=== PATIENT | female | born 1945 | race African-American/Black ===

== ENCOUNTER 2019-09-28 17:36 | Emergency (ER) | payer OTHER ==
[~2019-09-28] VITALS: Ht 167.6 cm; Wt 56.0 kg
[2019-09-28] MEDS ORDERED: SODIUM CHLORIDE 0.9% 1000ML BAG (SEPSIS BOLUS) IV ONE (19:00)
[2019-09-28] MEDS ORDERED: VANCOMYCIN 1 G PREMIX 200 ML IV ONE (19:00)
[2019-09-28 22:31] LABS: HEMATOCRIT. 43.1 % (36.0-48.0); HEMOGLOBIN. 13.8 g/dL (12.0-16.0); MEAN CORPUSCULAR HEMOGLOBIN 27.5 pg (28.0-32.0); MEAN CORPUSCULAR VOLUME 85.9 fL (81.0-99.0); MEAN PLATELET VOLUME 8.2 fl (7.4-10.4); PLATELET 390 x1000/uL (130-400); RED BLOOD CELL COUNT 5.01 mill/uL (4.2-5.4); RED CELL DISTRIBUTION WIDTH 16.7 % (11.6-14.6)
[2019-09-28 22:38] LABS: CHLORIDE 110 mEq/L (98-107)
[2019-09-28 22:58] LABS: PLATELET ESTIMATE NORMAL
[2019-09-29 00:54] LABS: PROTHROMBIN TIME 10.4 sec (9.6-11.0)
[2019-09-29 03:54] VITALS: BP 93/51
== END 2019-09-29 03:56 | disposition home or self-care (01) ==
LOC: ER 17:36 → CANRESERV 09-29 01:01 → ENRESERV 09-29 01:01 → ER 09-29 03:56 → CANBEDREQ 09-29 05:35
DX: I95.9 Hypotension, unspecified (principal); Z85.3 Personal history of malignant neoplasm of breast; R53.1 Weakness; R42 Dizziness and giddiness; F03.90 Unspecified dementia, unspecified severity, without behavioral disturbance, psychotic disturbance, mood disturbance, and anxiety; Z88.0 Allergy status to penicillin; Z88.5 Allergy status to narcotic agent
CPT/HCPCS: 36415; 71045; 80053; 83605; 84145; 84484; 85025; 93005; 96360; 99285